=== PATIENT | male | born 1990 | race Caucasian/White ===

== ENCOUNTER 2023-12-31 08:06 | Day surgery (SDC) | payer BC ==
[~2023-12-31 08:06] MED LIST: ceFAZolin 2 GM in Sodium Chloride 0.9% 50 ML IV ONE
[2023-12-31] MEDS ORDERED: Lidocaine 2% 5 ML SDV ONE ×2 (08:21→09:06)
[2023-12-31] MEDS ORDERED: Ondansetron 4 MG/2 ML SDV ONE (08:21)
[2023-12-31] MEDS ORDERED: Ropivacaine 0.5% 5 MG/ML 30 ML SDV ONE (08:21)
[2023-12-31] MEDS ORDERED: fentaNYL 100 MCG/2 ML SDV ONE ×2 (08:21→08:22)
[2023-12-31] MEDS ORDERED: Midazolam 1 MG/ML 2 ML SDV ONE ×2 (08:21→08:22)
[2023-12-31] MEDS ORDERED: Metoclopramide 10 MG/2 ML SDV IVPUSH PRN (08:39)
[2023-12-31] MEDS ORDERED: droPERidol 5 MG/2 ML SDV IVPUSH PRN (08:39)
[2023-12-31] MEDS ORDERED: fentaNYL 50 MCG/ML SDV IVPUSH PRN (08:39)
[2023-12-31] MEDS ORDERED: Naloxone 0.4 MG/ML SDV IVPUSH PRN (08:39)
[2023-12-31] MEDS ORDERED: Ondansetron 4 MG/2 ML SDV IVPUSH PRN (08:39)
[2023-12-31] MEDS ORDERED: Albuterol 0.083% 2.5 MG/3 ML Neb Soln NEB PRN (08:39)
[2023-12-31] MEDS ORDERED: Morphine 2 MG/ML SYRINGE IVPUSH PRN (08:39)
[2023-12-31] MEDS ORDERED: propofoL 50 ML ONE ×2 (09:03→09:12)
[2023-12-31] MEDS ORDERED: Rocuronium Bromide 50 MG/5 ML Syringe ONE (09:06)
[2023-12-31] MEDS: Lactated Ringers 1,000 ML IV SCH (09:11)
[2023-12-31] MEDS ORDERED: Bupivacaine 0.5%/EPINEPHrine 1:200,000 30 ML SDV ONE (09:21)
[2023-12-31] MEDS ORDERED: ceFAZolin 2 GM Vial ONE (09:27)
[2023-12-31] MEDS ORDERED: Ketorolac 30 MG/ML SDV ONE (09:39)
[2023-12-31] MEDS ORDERED: Sugammadex Sodium 200 MG/2 ML VIAL IV ONE (09:39)
[2023-12-31] MEDS: HYDROmorphone 1 MG/ML Syringe IVPUSH PRN (11:07)
== END 2023-12-31 12:30 | disposition home or self-care (01) ==
LOC: MW.SDS 08:06
PROVIDERS: ATTEND Orthopaedic Surgery
DX: S82.831A Other fracture of upper and lower end of right fibula, initial encounter for closed fracture (principal); F17.210 Nicotine dependence, cigarettes, uncomplicated; Z79.899 Other long term (current) drug therapy; X58.XXXA Exposure to other specified factors, initial encounter
CPT/HCPCS: 27792; 64447; 64450; 76000; J0131; J0690; J1170; J1885; J2250; J2704; J2795; J3010; J3490; J7120; J2405